=== PATIENT | male | born 1955 | race Caucasian/White ===

== ENCOUNTER 2024-01-06 15:09 | Observation (INO) | payer OTHER, SELFPAY ==
[2024-01-06] VITALS (9 sets, daily range): BP systolic 96–114; BP diastolic 59–71; BMI 18.0; BMI 17.2
--- NOTE | 2024-01-06 10:35 | ED.GENMED ---
History of Present Illness
General
Chief Complaint: Chest Pain
Source: patient
Exam Limitations: none
Time Seen by Provider: 01/06/24 10:32
Nursing documentation reviewed up to this point in time: agreed with
History of Present Illness
History of Present Illness:
patient is a 68-year-old male with past medical history of TAVR, COPD pulmonary plaque , heart failure non st elevation [place] followed by Dr. Villanueva presents to the ER for evaluation of chest pain. Patient reports he has had intermittent left-sided
chest pain for the past couple weeks. He reports he was seen at [facility] on Friday and had negative workup and was discharged home. 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
morning. He denies any associated shortness of breath. It feels like an ache. Patient is a former smoker stopped smoking in 2021
Past History
Past History
ED Past Medical History: COPD and Other (Aortic stenosis)
Social History
Tobacco: Former smoker
Alcohol: Daily
Review of Systems
Review of Systems
Allergies reviewed?: Yes
All Other Systems: ROS reviewed and negative except as documented in HPI and ROS
EENT: Reports no symptoms
Respiratory: Denies trouble breathing
Cardiac: Reports chest pain; Denies diaphoresis, palpitations or syncope
ABD/GI: Reports no symptoms
Musculoskeletal: Reports no symptoms
Skin: Reports no symptoms
Neurological: Reports no symptoms
Psychiatric: Reports no symptoms
Phy Exam
General Physical Exam
General Presentation: no apparent distress
General age: appears stated age
General Skin: warm and dry
General Habitus: normal
General Mental: alert
Cardiovascular Exam
Cardiovascular Exam: regular rate/rhythm, no murmur and normal peripheral pulses
Pulmonary Exam
Pulmonary Exam: lungs clear, no respiratory distress and other (non tender)
Neurological Exam
Neurological Exam: alert and oriented x3
Musculoskeletal Exam
Musculoskeletal Exam: full ROM
Skin Exam
Skin Exam: normal color and warm/dry
Psychiatric Exam
Psychiatric Exam: normal mood/affect
Scores
Heart Score for Chest Pain Patients
STEMI patient?: Not applicable
Course
Orders/Labs/Results
Orders:
Orders
01/06/24 10:32
EKG [Electrocardiogram (*1)] Urgent
Reason for Study: Chest Pain
01/06/24 10:33
EKG- Treatment ONCE
01/06/24 10:44
Basic Metabolic Panel Urgent
Complete Blood Count/With Diff Urgent
NT-proBNP Urgent
Comment: ADD ON
Troponin I Urgent
01/06/24 11:05
Chest [CR Chest - 2 Views ] Urgent
Comment:
Reason For Exam: cp
01/06/24 12:29
Add On- LAB Urgent
Tests Added?: cardiac BNP
Abnormal Lab Results
01/06/24
10:44
WBC 4.4 L 10^3/uL
(4.8-10.8)
MCHC 32.1 L g/dL
(33.0-37.0)
RDW 14.6 H %
(11.5-14.5)
Absolute Lymphs (auto) 0.6 L 10^3/uL
(1.2-3.4)
Lymphocytes % 13.5 L %
(20.5-51.1)
Monocytes % 11.9 H %
(1.7-9.3)
Sodium 130 L mmol/L
(135-145)
Chloride 96 L mmol/L
(98-107)
BUN 31 H mg/dl
(9-20)
Glucose 109 H mg/dl
(70-99)
01/06/24 10:44
01/06/24 10:44
Vital Signs
Initial and Last Documented VS:
Initial Vital Signs
BP
97/59
01/06/24 10:34
Last Documented Vital Signs
Temp Pulse Resp BP Pulse Ox
98 F 68 24 102/62 98
01/06/24 10:35 01/06/24 13:00 01/06/24 13:00 01/06/24 13:00 01/06/24 13:00
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
Physical Plant Employee consulted with physician?: Yes
Name of Physician Consulted: Goodsukhjinder
MDM/Problems Addressed
Differential Diagnosis Includes:
Not limited to ACS, congestive heart failure
MDM/Problems Addressed:
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 He has no SOB.
Patient presents in no acute distress denies pain presently. He denies any recent fever chills illness. He is afebrile with a normal white count stable hemoglobin. Troponin is 0.019. EKG however does show new left bundle branch block. chest
does show increasing sm left pleural effusion. will adm for further eval. journeyman mechanic is Dr Villanueva. I did discuss with DR bajwa gis application developer.
One time dose lasix given.
Pt does have mildly low sodium , BUN is 31 creatinine 1.3
Chronic conditions affecting care:
COPD/, TAVR
*Radiology
Radiology exam reviewed: radiology read reviewed
*Pulse Oximetry
Patient hypoxic: no
*EKG
Interpreted by ED Provider?: Yes
Interpretation: abnormal
Heart Rate: 73
Rate: normal
Rhythm: sinus
QRS Pattern: left bundle branch block
*Critical Care Note
Total Time (30-74mins, 75-104mins- exclusive of procedures): Not Applicable
Data Reviewed
Review of Other/Old Records Reveals: Discharge Summary and Other (Previous EKG and labs)
Patient Management
Discussion with other providers: Gum Cook (Dr bajwa cardiology )
ED Attending Note
-
Portions of this chart may have been created with voice recognition software.� Occasional wrong word or��sound alike� substitutions may have occurred due to the inherent limitations of voice recognition software.
Discharge Plan
Departure
Patient Disposition: Admit
Date of Disposition: 01/06/24
Time of Disposition: 13:48
Admit to: Telemetry
Admit to doctor: hospitalist
Presentation/result/management discussed w/ accepting MD/DO: Hospitalist
Patient with high blood pressure during this ER visit?: No
Condition: Fair
Covid-19: Not Applicable
Discharge Problem:
Chest pain, Heart failure, Acute hyponatremia, left bundle branch block
Prescriptions:
No Action
furosemide 40 mg Tablet
40 mg PO DAILY
albuterol sulfate 2.5 mg /3 mL (0.083 %) Solution For Nebulization
2.5 mg INHALATION R BID
aspirin 81 mg Tablet,Delayed Release (Dr/Ec)
81 mg PO DAILY
Patient Comments:
01/06/2024, pt. ran out about a week ago and has not restocked supply yet.
spironolactone 25 mg Tablet
25 mg PO DAILY
metoprolol succinate 25 mg Tablet Extended Release 24 Hr
25 mg PO DAILY
albuterol sulfate 90 mcg/actuation Hfa Aerosol Inhaler
2 puff INHALATION R Q4HPRN PRN (Reason: sob/wheezing)
valsartan 40 mg Tablet
40 mg PO DAILY
dapagliflozin propanediol 10 mg Tablet
10 mg PO DAILY
Referrals:
Eladio Tamez MD [Family Provider] -
Interventions
Interventions:
*Risk Screen - Suicide Last Done: 01/06/24 10:35
*General Assessment Last Done: 01/06/24 10:35
*Neglect/Abuse Screening Last Done: 01/06/24 10:35
ED- Fall Risk Assessment Last Done: 01/06/24 10:35
*ED COVID-19 Vaccine History Last Done: 01/06/24 10:35
ED- Cardiac Assessment Last Done: 01/06/24 10:35
Discharge Date and Time
Print Language: GREENLANDIC
[2024-01-06 10:55] LABS: % Basophils 0.7 % (0-2); % Eosinophils 0.5 % (0-6); % Immature Granulocytes 0.2 % (0-0.5); % Lymphocytes 13.5 % (20.5-51.1); % Monocytes 11.9 % (1.7-9.3); % Neutrophils 73.2 % (42.2-75.2); Absolute Lymphocytes 0.6 10^3/uL (1.2-3.4); Absolute Monocytes 0.5 10^3/uL (0.1-0.6); Absolute Neutrophils 3.2 10^3/uL (1.4-6.5); Hematocrit 41.7 % (39.0-52.0); Hemoglobin 13.4 g/dL (13.0-18.0); Mean Corp Hgb Conc. 32.1 g/dL (33.0-37.0); Mean Corpuscular Hgb 27.4 pg (27.0-31.0); Mean Corpuscular Volume 85.3 fL (80.0-94.0); Mean Platelet Volume 9.8 fL (7.4-10.4); Nucleated Red Blood Cells % 0 % (-); Platelet Count 133 10^3/uL (130-400); Red Blood Cell Count 4.89 10^6/uL (4.70-6.10); Red Cell Dist. Width 14.6 % (11.5-14.5); White Blood Cell Count 4.4 10^3/uL (4.8-10.8)
[2024-01-06 11:17] LABS: Blood Urea Nitrogen 31 mg/dl (9-20); Calcium 8.7 mg/dl (8.4-10.2); Carbon Dioxide 26 mmol/L (22-30); Chloride 96 mmol/L (98-107); Estimated Creatinine Clearance 39 ml/min; Glucose 109 mg/dl (70-99); Sodium 130 mmol/L (135-145); eGFR 59.84
[2024-01-06 11:23] LABS: Troponin I 0.019 ng/ml
[2024-01-06 13:25] LABS: NT-proBNP 6640 pg/ml
[2024-01-06] MEDS: LASIX 40 MG IV (13:51)
--- NOTE | 2024-01-06 14:23 | HPS.HSE ---
Addendum entered and electronically signed by Scott Krishnamurthy MD 01/06/24 14:59:
Attending attestation
Agree with above per advanced practice provider.
Chest pain constant described as a muscle ache however getting worse after being started on new medications by outpatient manager contract. Will continue to trend troponins. EKG demonstrating left bundle branch block, this left bundle branch block was
noted on a 2D echocardiogram finding. Therefore this is not new. Will continue to monitor on telemetry. May consider obtaining repeat 2D echocardiogram. Trend troponins till peak. Continue antianginals.
-Cannot rule out musculoskeletal as he states that the pain is over his pectoral muscles and gets worse using his left arm to buy groceries. Can trial NSAID
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 Recently evaluated by outpatient manager contract started beta-blockers and ARB.
HFmrEF, euvolemic on exam no JVD no peripheral pitting edema no crackles on exam. Continue GDMT with beta-blockers ARB. Continue SGLT2 inhibitor. Continue diuretic. Along with Aldactone
HTN continued hypertensive
TAVR continue outpatietn follow up at valve clinic/with outpatient cardiology
Alcohol use disorder, thiamine folate, ciwa protocol/minds (per hospital policy), prn ativan. without evidence of withdrawl.
Original Note:
Family Physician
<ARPIT Moya - Last Filed: 01/06/24 14:55>
-
Family Physician: Eladio Tamez
Chief Complaint
<ARPIT Moya - Last Filed: 01/06/24 14:55>
-
Left-sided chest pain with left arm movement
History of Present Illness
68-year-old male complaining of intermittent left-sided chest pain over the past few weeks. He states he was seen at [facility] on Friday 5 days ago and negative workup and was discharged home. 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 He reports when working and moving and lifting his arm he gets left pectoral pain. He denies pain at rest. He reports seeing his manager contract approximately 8 days ago and was given
metoprolol succinate 25 mg along with valsartan 40 mg in addition to his regimen. Since starting these medications he feels the chest pain gets worse with movement. He denies any radiation, shortness of breath, cough, fever, chills, abdominal
pain, nausea, vomiting, diarrhea, urinary symptoms.
He has past medical history of aortic stenosis status post TAVR, moderate�severe mitral regurg, COPD, LBBB, diastolic heart failure reduced EF, pulm HTN.
Medical History
<ARPIT Moya - Last Filed: 01/06/24 14:55>
Past Medical History
Past Medical History: Reports Other
Additional Past Medical History:
aortic stenosis status post TAVR
moderate�severe mitral regurg
COPD, LBBB, diastolic heart failure reduced EF
pulm HTN
Past Surgical History: Reports Other
Additional Past Surgical History:
Aortic stenosis status post TAVR
Social History
Tobacco: Former Smoker (50-year 1 pack a day quit 2021)
Alcohol: None
Drug: None
Personal:
Living: With Family ( son and grandkids)
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
Family History
Family History: Not pertinent
Allergies / Home Medications
Allergies reflects when Allergies were last updated in [employer].
Home Medications with original date entered in [employer]
Allergy/Medication List:
Allergies
Allergy/AdvReac Type Severity Reaction Status Date / Time
No Known Allergies Allergy Verified 01/23/22 08:50
Home Medications
albuterol sulfate 2.5 mg/3 mL (0.083 %) solution for nebulization 2.5 mg inhalation R BID Lung/Breathing Issues 01/06/24
albuterol sulfate 90 mcg/actuation aerosol inhaler 2 puff inhalation R Q4HPRN PRN sob/wheezing 01/06/24
aspirin 81 mg tablet,delayed release 81 mg PO DAILY Blood Clot Prevention/Tx 01/06/24
dapagliflozin propanediol 10 mg tablet 10 mg PO DAILY Heart Failure 01/06/24
furosemide 40 mg tablet 40 mg PO DAILY Fluid Retention/Swelling 01/06/24
metoprolol succinate 25 mg tablet,extended release 24 hr 25 mg PO DAILY Heart Failure 01/06/24
spironolactone 25 mg tablet 25 mg PO DAILY Heart Failure 01/06/24
valsartan 40 mg tablet 40 mg PO DAILY Heart Failure 01/06/24
<Scott Krishnamurthy MD - Last Filed: 01/06/24 14:58>
Social History
Tobacco: Former Smoker
Alcohol: Chronic Alcoholic
Drug: None
Family History
Family History: Other
Review of Systems
<ARPIT Moya - Last Filed: 01/06/24 14:55>
-
History Source: Patient
A 12 point ROS was completed and negative except as noted: Yes
Constitutional: Denies Fever or Chills
EENT: Denies Sore Throat or Runny Nose
Respiratory: Denies Cough or Trouble Breathing
Cardiac: Reports Chest Pain (Left pectoral with movement of left arm); Denies Diaphoresis, Palpitations or Syncope
Abdomen/GI: Denies Abdominal Pain, Nausea, Vomiting, Diarrhea, Constipated, Bloody Stools or Black Stools
: Denies Dysuria, Frequency, Flank Pain, Incontinence, Difficulty Voiding or Urgency
Musculoskeletal: Denies Joint Pain or Edema
Skin: Denies Itching or Rash
Neurological: Denies Dizzy, Headache or Weakness
Endocrine: Reports No Symptoms
Hematologic/Lymphatic: Reports No Symptoms
Psych: Reports Calm
<Scott Krishnamurthy MD - Last Filed: 01/06/24 14:58>
-
Constitutional: Reports No Symptoms
EENT: Reports No Symptoms
Respiratory: Reports No Symptoms
Cardiac: Reports Chest Pain
Abdomen/GI: Reports No Symptoms
: Reports No Symptoms
Musculoskeletal: Reports No Symptoms
Skin: Reports No Symptoms
Neurological: Reports No Symptoms
Endocrine: Reports No Symptoms
Hematologic/Lymphatic: Reports No Symptoms
Psych: Reports No Symptoms
Physical Exam
<ARPIT Moya - Last Filed: 01/06/24 14:55>
Vital Signs
Vital Signs
Temp Pulse Resp BP Pulse Ox
98 F 68 24 102/62 98
01/06/24 10:35 01/06/24 13:00 01/06/24 13:00 01/06/24 13:00 01/06/24 13:00
Physical Exam
General: Comfortable and Conversant; No Fever or Chills
HEENT: NormoCephalic, Anicteric, Moist mucous membranes, PERRLA, [place] Conjunctivae and No Ptosis
Respiratory: Clear; No Wheezes, Rales or Rhonchi
Cardiac: S1/S2, Regular Rhythm, Murmur (2/6 systolic) and Other (Left pectoral chest pain with movement of left arm); No Rub, Gallop or Peripheral Edema
Breast: Deferred by me
GI: Soft, Non Tender, Non Distended, Normal Bowel Sounds and No Hepatosplenomegaly
Rectal: Deferred by Provider
Genito-urinary: Deferred by me
Musculoskeletal: No Clubbing, No Cyanosis and No Edema
Skin: Warm and Dry; No Rash
Neuro: AO x 3, No Motor Deficits, Nonfocal/grossly intact, Cranial Nerves Intact and No Sensory Deficits; No Slurred Speech, Facial Droop, Tremors or Sedated
Psych: Calm
<Scott Krishnamurthy MD - Last Filed: 01/06/24 14:58>
Physical Exam
General: Well Developed
HEENT: NormoCephalic
Respiratory: Clear
Cardiac: S1/S2 and Regular Rhythm
GI: Soft, Non Tender, Non Distended and Normal Bowel Sounds
Rectal: Deferred by Provider
Genito-urinary: Deferred by me
Musculoskeletal: No Clubbing and No Cyanosis
Skin: Warm and Dry
Neuro: Awake, Alert, Oriented and AO x 3
Psych: Calm
Laboratory Results
<ARPIT Moya - Last Filed: 01/06/24 14:55>
-
01/06/24 10:44
01/06/24 10:44
Laboratory Results
Total Bilirubin Cancelled 01/06/24 10:44
AST Cancelled 01/06/24 10:44
ALT Cancelled 01/06/24 10:44
Alkaline Phosphatase Cancelled 01/06/24 10:44
Troponin I 0.019 ng/ml 01/06/24 10:44
Impression/Plan
<ARPIT Moya - Last Filed: 01/06/24 14:55>
-
Impression/plan:
Observation telemetry
#Chest pain concern type II KS versus left pectoral strain
#Hx LBBB
Troponin 0.019 will trend
-Consult cardiology CBC
-Tylenol as needed
EKG: NSR, LBBB replaced incomplete RBBB, QTc 519 MS
#Chronic left pleural effusion
BNP 6640
Patient given Lasix 40 mg in ER
CXR: Small left pleural effusion with adjacent atelectasis/consolidation slightly increased compared to prior
#HTN�benign
BP 102/62
-Continue metoprolol 25 mg daily, valsartan 40 mg daily with hold parameters
#COPD no acute exacerbation
#Former smoker 50-year 1 pack a day stopped 2021
Continue inhalers
#Chronic diastolic CHF with reduced EF
No overt signs of heart failure, BNP 6640
-I/O, daily weights
-Continue dapagliflozin 10 mg daily, metoprolol succinate 25 mg daily with hold parameters
-Continue Lasix 40 mg daily, spironolactone
2D echo 03/31/2023: EF 40-45%, stage II diastolic dysfunction, increased filling pressures,
septal motion consistent with LBBB
Moderate�severe mitral regurg status post 26 mm JENNIFER 3 TAVR
Moderate elevated PASP 51 mmHg / 8 mmHg
Proximal ascending aorta 3.8 cm
PATTI 01/23/2022: EF 60-65%, no wall abnormalities, mild mitral stenosis, severe mitral regurg, severe aortic stenosis peak mean gradient 70/47 mmHg, mild to moderate aortic regurg
#Aortic stenosis status post TAVR
#Moderate to severe MR
#Pulm HTN�PASP 51 mmHg
DVT prophylaxis
Subcu Lovenox
Full code
<Scott Krishnamurthy MD - Last Filed: 01/06/24 14:58>
-
Impression/plan:
Observation telemetry
#Chest pain concern type II KS
#Hx LBBB
Troponin 0.019 will trend
-Consult cardiology CBC
EKG: NSR, LBBB replaced incomplete RBBB, QTc 519 MS
#Chronic left pleural effusion
BNP 6640
Patient given Lasix 40 mg in ER
CXR: Small left pleural effusion with adjacent atelectasis/consolidation slightly increased compared to prior
#HTN�benign
BP 102/62
-Continue metoprolol 25 mg daily, valsartan 40 mg daily with hold parameters
#Chronic diastolic CHF with reduced EF
-I/O, daily weights
-Continue dapagliflozin 10 mg daily, metoprolol succinate 25 mg daily, spironolactone 25 mg daily with hold parameters
-Continue Lasix 40 mg daily
2D echo 03/31/2023: EF 40-45%, stage II diastolic dysfunction, increased filling pressures,
septal motion consistent with LBBB
Moderate�severe mitral regurg status post 26 mm JENNIFER 3 TAVR
Moderate elevated PASP 51 mmHg / 8 mmHg
Proximal ascending aorta 3.8 cm
PATTI 01/23/2022: EF 60-65%, no wall abnormalities, mild mitral stenosis, severe mitral regurg, severe aortic stenosis peak mean gradient 70/47 mmHg, mild to moderate aortic regurg
#Aortic stenosis status post TAVR
#Moderate to severe MR
#Pulm HTN�PASP 51 mmHg
DVT prophylaxis
Subcu Lovenox
Full code
Attending attestation
Agree with above per advanced practice provider.
Chest pain constant described as a muscle ache however getting worse after being started on new medications by outpatient manager contract. Will continue to trend troponins. EKG demonstrating left bundle branch block, this left bundle branch block was
noted on a 2D echocardiogram finding. Therefore this is not new. Will continue to monitor on telemetry. May consider obtaining repeat 2D echocardiogram. Trend troponins till peak. Continue antianginals.
-Cannot rule out musculoskeletal as he states that the pain is over his pectoral muscles and gets worse using his left arm to buy groceries. Can trial NSAID
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 Recently evaluated by outpatient manager contract started beta-blockers and ARB.
HFmrEF, euvolemic on exam no JVD no peripheral pitting edema no crackles on exam. Continue GDMT with beta-blockers ARB. Continue SGLT2 inhibitor. Continue diuretic. Along with Aldactone
HTN continued hypertensive
TAVR continue outpatietn follow up at valve clinic/with outpatient cardiology
Alcohol use disorder, thiamine folate, ciwa protocol/minds (per hospital policy), prn ativan. without evidence of withdrawl.
[2024-01-06 15:24] LABS: Troponin I 0.017 ng/ml
--- NOTE | 2024-01-06 15:43 | CON.CAR ---
Addendum entered and electronically signed by Siddharth Daniels MD 01/06/24 18:01:
68 yo male with PMH of chronic HFmEF, TAVR 2021 (no CAD at the time), moderate/severe MR, mild/mod MS, LBBB (post TAVR) is admitted with chest pain. He had been lifting heavy boxes at work. Pain is left lateral chest, and reproducible on exam.
Exam also significant for RRR, III/ systolic murmur at apex, no edema. TnI wnl. EKG: NSR, LBBB (stable from prior outpatient EKG).
Suspect MSK pain. Will trend trop, tele, and check echo in AM. Given cath with no CAD in 2021, will defer stress test at this time.
He looks euvolemic. Continue PO lasix, and farxiga for his chronic HFmEF.
Original Note:
Consultation
Consultation Request
Date/Time Consultation Requested: 01/06/24 14:48pm
Date/Time Consultation Performed: 01/06/24 3:44pm
Requesting Provider: Liliana Valle
Performing Provider: Rona Sawyer for Siddharth [place]
Reason for Consultation: Chest Pain, TAVR and MR
Medical History
-
Chief Complaint: Chest Pain x 2 weeks
History of Present Illness:
68 yo M presents to the emergency room with Chest pain x 2 weeks. His initial chest pain is intermittent aching, about 4-5/10 in intensity, and radiating into his left arm. He is seen by his primary instruction dean about 8 days ago, and was given
metoprolol succinate 25mg, and Valsartan 40mg. His chest pain worsened after taking the medications to about 7-9/10, and he went to [facility] on Friday for evaluation. He was discharged home from the emergency room on the same day.
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 Currently he reports chest pain of 3-4/10 in intensity, all this time with radiation into his left armpit and arm.
Recent weight loss - 118 to 109, poor dentition. However reports no weight change.
Admits to have some wet cough, that has been stable for years from COPD, and no change in baseline SOB.
He denies having PND, Orthopnea, palpitations, recent weight gain more than 5 pounds, syncope or near syncopal episodes, swelling of feet, fever, chills, bowel or bladder habit changes.
Past Medical History
Past Medical History: Other ( s/p TAVR, moderate-severe MR, COPD, LBBB, HFmEF, pulm HTN)
Past Surgical History: Other (TAVR)
Social History
Tobacco: Former Smoker (50 pack year smoking history, quit from 2021)
Alcohol: None
Drug: None
Personal:
Living: With Family
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
Family History
Family History: Reviewed & Not Pertinent
Allergies / Home Medications
Allergy/AdvReac Type Severity Reaction Status Date / Time
No Known Allergies Allergy Verified 01/23/22 08:50
�Medication �Instructions �Recorded �Confirmed �Type
albuterol sulfate 2.5 mg/3 mL 2.5 mg inhalation R BID 01/06/24 01/06/24 History
(0.083 %) solution for nebulization Lung/Breathing Issues
albuterol sulfate 90 mcg/actuation 2 puff inhalation R Q4HPRN PRN 01/06/24 01/06/24 History
aerosol inhaler sob/wheezing
aspirin 81 mg tablet,delayed 81 mg PO DAILY Blood Clot 01/06/24 01/06/24 History
release Prevention/Tx
dapagliflozin propanediol 10 mg 10 mg PO DAILY Heart Failure 01/06/24 01/06/24 History
tablet
furosemide 40 mg tablet 40 mg PO DAILY Fluid 01/06/24 01/06/24 History
Retention/Swelling
metoprolol succinate 25 mg 25 mg PO DAILY Heart Failure 01/06/24 01/06/24 History
tablet,extended release 24 hr
spironolactone 25 mg tablet 25 mg PO DAILY Heart Failure 01/06/24 01/06/24 History
valsartan 40 mg tablet 40 mg PO DAILY Heart Failure 01/06/24 01/06/24 History
Review of Systems
-
History Source: Patient
All other systems: Negative unless noted
Cardiac: Chest Pain
Physical Exam
Vital Signs
Temp Pulse Resp BP Pulse Ox
98 F 75 24 114/71 98
01/06/24 10:35 01/06/24 14:00 01/06/24 14:00 01/06/24 14:00 01/06/24 14:00
Lab Results
01/06/24 10:44
01/06/24 10:44
Troponin I 0.017 ng/ml 01/06/24 14:44
Smg-E-Aruzkcrotvk Pept 6640 pg/ml 01/06/24 10:44
Physical Exam
General: No Apparent Distress and Comfortable
HEENT: Normocephalic and Anicteric
Respiratory: Clear; Negative Wheezes, Crackles or Rhonchi
Cardiac: S1/S2, Regular Rhythm and Murmur (systolic murmur 2/6, best heard at apex)
GI: Soft, Non Tender and Non Distended
Musculoskeletal: No Edema
Skin: Warm
Neuro: AO x 3
Psych: Calm
Impression / Plan
-
Impression -
68 Yo M with a PMHx of COPD, s/p TAVR(2021), moderate to severe MR, LBBB, Hyperkalemia and hyponatremia presents to the ER with new onset intermittent chest pain X 2 weeks. Cardiology consulted for evaluation.
Plan -
Chest pain is atypical. In the setting of non-elevated troponins, chest pain being reproducible and No new EKG changes acute coronary syndrome is very less likely.
Elevated pro - BNP levels - 6600, patient is on optimal medical management for HFmEF.
no H/o CAD .
NSR with LBBB on telemetry
Will do an Echo in the am tomorrow to assess cardiac function.
Echocardiogram - 03/31/23
Mild/moderately reduced left ventricular systolic function. Estimated left
ventricular ejection fraction is 40-45%.
Stage II diastolic dysfunction suggestive of abnormal relaxation and increased
filling pressures.
Abnormal (paradoxical) septal motion consistent with left bundle branch block.
Dense mitral annular calcification. Mild/moderate mitral stenosis (mean
gradient 6-7 mmHg, MVA by PHT 2.59 cm2).
Moderate/severe, eccentric mitral regurgitation.
s/p 26 mm Kylah 3 TAVR. The peak/mean gradients across the valve are 20/12
mmHg. Trivial paravalvular aortic regurgitation is seen.
Mild tricuspid regurgitation. Moderately elevated PASP. Estimated pulmonary
artery pressure of 51 mmHg assuming a right atrial pressure of 8 mmHg.
Ectatic proximal ascending aorta (3.8 cm).
Compared to 12/25/21: patient has undergone interim TAVR. LVEF has declined from
50-55% to 40-45%. MR has progressed from moderate to moderate/severe. MS has
progressed from mild to mild/moderate. Prior ascending aorta measurement was
3.9 cm.
[2024-01-06 16:59] LABS: Magnesium 2.3 mg/dl (1.6-2.3)
[2024-01-06 17:57] LABS: Potassium 4.3 mmol/L (3.5-5.1)
[2024-01-06] MEDS: LOVENOX 40 MG SC (18:48)
[2024-01-06] MEDS: VENTOLIN NEBULES 2.5 MG INH (19:25)
[2024-01-07 03:27] VITALS: BP 122/67
[2024-01-07 06:00] VITALS: BMI 16.4
[2024-01-07 07:26] VITALS: BP 98/66
[2024-01-07 07:37] LABS: % Eosinophils 1.8 % (0-6); % Immature Granulocytes 0.5 % (0-0.5); % Lymphocytes 15.1 % (20.5-51.1); % Monocytes 11.2 % (1.7-9.3); % Neutrophils 70.4 % (42.2-75.2); Absolute Eosinophils 0.1 10^3/uL (0-0.7); Absolute Lymphocytes 0.6 10^3/uL (1.2-3.4); Absolute Monocytes 0.4 10^3/uL (0.1-0.6); Absolute Neutrophils 2.8 10^3/uL (1.4-6.5); Hematocrit 40.8 % (39.0-52.0); Hemoglobin 13.8 g/dL (13.0-18.0); Mean Corp Hgb Conc. 33.8 g/dL (33.0-37.0); Mean Corpuscular Hgb 27.4 pg (27.0-31.0); Mean Corpuscular Volume 81.1 fL (80.0-94.0); Mean Platelet Volume 10.7 fL (7.4-10.4); Nucleated Red Blood Cells % 0 % (-); Platelet Count 146 10^3/uL (130-400); Red Blood Cell Count 5.03 10^6/uL (4.70-6.10); Red Cell Dist. Width 14.4 % (11.5-14.5); White Blood Cell Count 3.9 10^3/uL (4.8-10.8)
[2024-01-07 07:57] LABS: Blood Urea Nitrogen 30 mg/dl (9-20); Calcium 8.4 mg/dl (8.4-10.2); Carbon Dioxide 25 mmol/L (22-30); Chloride 96 mmol/L (98-107); Estimated Creatinine Clearance 39 ml/min; Glucose 107 mg/dl (70-99); HDL Cholesterol 34 mg/dl; LDL Cholesterol, Calculated 66 mg/dl; Potassium 4.2 mmol/L (3.5-5.1); Sodium 128 mmol/L (135-145); Total Cholesterol 121 mg/dl (50-199); Triglyceride 105 mg/dl (10-149); Very Low Density Lipoprotein 21 mg/dl (0-30); eGFR > 60.00
[2024-01-07] MEDS: VENTOLIN NEBULES 2.5 MG INH (08:55)
[2024-01-07] MEDS: ASPIR LOW (ENTERIC COATED) 81 MG PO (09:11)
--- NOTE | 2024-01-07 09:12 | PTCARENOTE ---
Messaged provider regarding patient's morning BP 98/66, HR 83. Provider advised to hold all BP medications at this time.
--- NOTE | 2024-01-07 09:21 | W.PN.CD ---
Addendum entered and electronically signed by Ralph Villanueva MD 01/07/24 14:31:
I saw and examined the patient.
The RETAIL ADMINISTRATIVE ASSISTANT's note was reviewed and I agree with the note.
Comment: Echo is unchanged. Trop are negative. LBBB dates to TAVR. This is non cardiac chest pain.
We will sign off. He will followup with me as previously planned.
Original Note:
Today's Communication / Plan
-
Pending echo.
Likely muscle strain
Impression / Plan
-
Impression -
68 Yo M with a PMHx of COPD, s/p TAVR(2021), moderate to severe MR, LBBB, Hyperkalemia and hyponatremia presents to the ER with new onset intermittent chest pain X 2 weeks. Cardiology consulted for evaluation.
Plan -
Chest pain is atypical. In the setting of non-elevated troponins, chest pain being reproducible and No new EKG changes acute coronary syndrome is very less likely.
Elevated pro - BNP levels - 6600, patient is on optimal medical management for HFmEF.
no H/o CAD .
NSR with LBBB on telemetry
Will do an Echo in the am tomorrow to assess cardiac function.
Echocardiogram - 03/31/23
Mild/moderately reduced left ventricular systolic function. Estimated left
ventricular ejection fraction is 40-45%.
Stage II diastolic dysfunction.
Abnormal (paradoxical) septal motion consistent with left bundle branch block.
Dense mitral annular calcification. Mild/moderate mitral stenosis (mean gradient 6-7 mmHg, MVA by PHT 2.59 cm2).
Moderate/severe, eccentric mitral regurgitation.
s/p 26 mm Kylah 3 TAVR. The peak/mean gradients across the valve are 20/12
mmHg. Moderately elevated PASP 51 mmHg.
Ectatic proximal ascending aorta (3.8 cm).
Compared to 12/25/21: patient has undergone interim TAVR. LVEF has declined from
50-55% to 40-45%. MR has progressed from moderate to moderate/severe. MS has
progressed from mild to mild/moderate. Prior ascending aorta measurement was
3.9 cm.
Physical Exam
Vital Signs/Labs
Vital Signs
Temp Pulse Resp BP Pulse Ox
98.9 F 83 16 98/66 97
01/07/24 07:26 01/07/24 09:00 01/07/24 09:00 01/07/24 07:26 01/07/24 09:00
01/06/24 01/07/24 01/08/24
06:59 06:59 06:59
Actual Weight 47.372 kg
01/07/24 06:11
01/07/24 06:11
Magnesium 2.3 mg/dl (1.6-2.3) 01/06/24 10:44
Triglycerides 105 mg/dl (10-149) 01/07/24 06:11
LDL Cholesterol, Calc 66 mg/dl 01/07/24 06:11
VLDL Cholesterol, Calc 21 mg/dl (0-30) 01/07/24 06:11
HDL Cholesterol 34 mg/dl 01/07/24 06:11
01/06/24
10:44
Idq-W-Hylcsutplge Pept 6640
LAB Results
01/06/24 01/06/24
10:44 14:44
Troponin I 0.019 0.017
Physical Exam
Constitutional: Comfortable
Cardiovascular: Systolic murmur present (3/6 at apex) and S1S2 is normal
Respiratory: Respiratory effort normal and Lungs clear to auscul.
GI: Soft, Distention absent and Non tender
Neuro/Psych: AO x 3
Data Reviewed
-
Date of Service: January 07, 2024
[2024-01-07 11:02] VITALS: BMI 16.4
[2024-01-07 11:16] VITALS: BP 98/65
--- NOTE | 2024-01-07 13:04 | W.DCSUMMARY ---
Discharge Summary
Discharge Data
Date of Admission: 01/06/24
Date of Discharge: 01/07/24
-
Pending Results: No
Hospital Course
Presented with left-sided chest discomfort which was most consistent with musculoskeletal etiology from overuse of left pectoral muscle. Troponin negative. EKG nonischemic without acute new changes known history of LBBB. Evaluated by cardiology
2D echocardiogram without wall motion abnormalities however did show slight reduction in EF to 35 to 40% from 40 to 45%. Outpatient cardiology follow-up is recommended. Avoid alcohol. Additionally was noted to be hyponatremic this is likely
secondary to alcohol use. Discussed cessation.
No acute distress
Scleral anicteric
No JVD
Moist mucous membranes
CTA bilateral
Normal S1-S2
Without peripheral pitting edema
Moves all 4 extremities spontaneously
AAOx3
Normal affect
Discharge Plan
-
Patient Disposition: Home (Routine Discharge)
Discharge Diagnosis/Procedures: Atypical chest discomfort which is likely secondary suspected to be musculoskeletal in nature
COPD
Aortic stenosis s/p TAVR 4
Moderate to severe MR
LBBB
Hyperkalemia
Hyponatremia
Alcohol use disorder
Condition: Good
Diet: No restrictions
Additional Diets: Avoid alcohol as this is affecting your sodium
Activity: As tolerated
Driving Restrictions: As prior to admission
Bathing Restrictions: None
Activity Restrictions/Additional Instructions:
Presented with left-sided chest discomfort worse with movement and with exercise such as bagging groceries. This is likely to believed to be musculoskeletal in nature. Cardiology was consulted and recommended 2D for which findings are as below.
As there was no change in EKG. No elevation in heart enzymes. Cardiology believed that this was likely related to musculoskeletal and recommended outpatient follow-up.
Avoid excessive use of left arm and pectoral muscle. Light lifting.
CONCLUSIONS
Mild to moderately reduced left ventricular systolic function.
Left ventricular ejection fraction is 35-40% by visual assessment.
Severe left atrial enlargement.
Dense MAC with mild calcific mitral stenosis.
Moderate to severe mitral regurgitation.
TAVR AoV is functioning well (mean 14 mmHg, mild AI).
No significant change since the prior study of 03/31/2023 when the LVEF was
estimated at 40-45%. Side by side comparison of the images suggests no change
in the LVEF.
Referrals:
Siddharth Daniels MD [Active] - in less than 1 week
Eladio Tamez MD [Family Provider] -
Prescriptions:
Continued
furosemide 40 mg Tablet
40 mg PO DAILY
albuterol sulfate 2.5 mg /3 mL (0.083 %) Solution For Nebulization
2.5 mg INHALATION R BID
aspirin 81 mg Tablet,Delayed Release (Dr/Ec)
81 mg PO DAILY
Patient Comments:
01/06/2024, pt. ran out about a week ago and has not restocked supply yet.
spironolactone 25 mg Tablet
25 mg PO DAILY
metoprolol succinate 25 mg Tablet Extended Release 24 Hr
25 mg PO DAILY
albuterol sulfate 90 mcg/actuation Hfa Aerosol Inhaler
2 puff INHALATION R Q4HPRN PRN (Reason: sob/wheezing)
valsartan 40 mg Tablet
40 mg PO DAILY
dapagliflozin propanediol 10 mg Tablet
10 mg PO DAILY
Discharge Orders:
Discharge Patient (As Directed); Ordered 01/07/24
Ordered By: Scott Krishnamurthy
Discharge Date and Time
Print Language: BULGARIAN
--- NOTE | 2024-01-07 13:27 | CM ---
agriculture manager reviewed patient's chart and met with patient and patient lives with his spouse and son in a multilevel home, patient is independent with adl's and ambulation. no dme, patient drives.
Pharmacy: [facility]
PCP: Dr. Tamez
Plan; Home when stable.
--- NOTE | 2024-01-07 13:31 | W.PN.HOSP.TC ---
Today's Communication/Plan
-
dc home
Assessment / Plan
Assessment / Plan
General: No Apparent Distress
HEENT: Normocephalic, Atraumatic and Moist Mucous Membranes. No JVD. Poor dentition
Respiratory: CTA B/L, No rales or crackles or wheezes.
Cardiac: Regular Rhythm and S1/S2.
GI: Soft, NT, ND, BS+
Musculoskeletal: No Cyanosis , No Edema
Skin: Dry
Neuro: aao x3
Psych: normal affect
Chest discomfort atypical evaluated by cardiology. Most likely musculoskeletal in nature. Troponin negative. EKG nonischemic with known LBBB.
HFrEF, euvolemic, 2D echocardiogram with slight decrease in EF however. No significant wall motion abnormalities noted. Continue GDMT.
Hyponatremia likely secondary to beerpotonemia. Had a lengthy discussion with him about alcohol cessation. He verbalized understanding.
HTN continued hypertensive
TAVR continue outpatietn follow up at valve clinic/with outpatient cardiology
Anticipated Discharge: Today
Subjective/Interval History
-
Date of Service: January 07, 2024
No new complaints
Wants to go home
Waiting for 2D echo to be completed and read
Objective Data
-
Labs:
Laboratory Results
01/07/24
06:11
WBC 3.9 L
Hgb 13.8
Hct 40.8
Plt Count 146
Sodium 128 L
Potassium 4.2
Chloride 96 L
Carbon Dioxide 25
BUN 30 H
Creatinine 1.2
Glucose 107 H
Calcium 8.4
Vital Signs:
Vital Signs
Temp Pulse Resp BP Pulse Ox
97.9 F 85 18 98/65 98
01/07/24 11:16 01/07/24 11:16 01/07/24 11:16 01/07/24 11:16 01/07/24 11:16
I&O
01/06/24 01/07/24 01/08/24
06:59 06:59 06:59
Output Total 950 / 950
Balance -950 / -950
--- NOTE | 2024-01-07 14:00 | PTCARENOTE ---
Rn Flow dry drug worker- Dc instructions given to patient. Patient states that he will not avoid drinking alcohol. Attempted to inform patient about the risk of drinking and patient states that 'the day i give up drinking, is the day I '
== END 2024-01-07 14:33 | disposition home or self-care (01) ==
LOC: 4 WEST ACU 15:09
PROVIDERS: Clinical Nurse Specialist Family Health; Student in an Organized Health Care Education/Training Program; ADMITTING PHYSICIAN Hospitalist; CONSULT PHYSICIAN Internal Medicine; EMERGENCY PHYSICIAN Emergency Medicine; FAMILY PHYSICIAN Family Medicine
DX: R07.89 Other chest pain (principal); I44.7 Left bundle-branch block, unspecified; E87.1 Hypo-osmolality and hyponatremia; I08.0 Rheumatic disorders of both mitral and aortic valves; J44.9 Chronic obstructive pulmonary disease, unspecified; J90 Pleural effusion, not elsewhere classified; I11.0 Hypertensive heart disease with heart failure; I50.22 Chronic systolic (congestive) heart failure; F10.10 Alcohol abuse, uncomplicated; I27.20 Pulmonary hypertension, unspecified; Z79.84 Long term (current) use of oral hypoglycemic drugs; Z87.891 Personal history of nicotine dependence; Z95.2 Presence of prosthetic heart valve
CPT/HCPCS: 71046; 80048; 80061; 83735; 83880; 84132; 84484; 85025; 93005; 93306; 94640; 96374; 99285; G0378

== ENCOUNTER → 2025-05-17 12:37 | Outpatient (REF) | payer OTHER, SELFPAY | LOC: PET 12:37 | PROVIDERS: ATTENDING PHYSICIAN Internal Medicine Cardiovascular Disease | DX: R07.2 Precordial pain (principal); I50.20 Unspecified systolic (congestive) heart failure; Z95.2 Presence of prosthetic heart valve | CPT/HCPCS: 78431; A9555; J2785 ==

== ENCOUNTER → 2025-06-01 12:12 | Outpatient (REF) | payer OTHER, SELFPAY | LOC: RCS 12:12 | PROVIDERS: ATTENDING PHYSICIAN Internal Medicine Cardiovascular Disease; FAMILY PHYSICIAN Family Medicine | DX: R07.2 Precordial pain (principal); I50.20 Unspecified systolic (congestive) heart failure; Z95.2 Presence of prosthetic heart valve | CPT/HCPCS: 93306 ==